=== PATIENT | male | born 1950 | race Caucasian/White ===

== ENCOUNTER 2019-11-03 16:29 | Emergency (ER) | payer MEDICARE ==
[~2019-11-03 16:29] MED LIST: SUCCINYLCHOLINE CHLORIDE INJ 200 MG/10 ML VIAL ONE
[2019-11-03] MEDS ORDERED: NALOXONE HCL INJ 2 MG/2 ML DISP.SYRIN ONE (16:52)
[2019-11-03] MEDS ORDERED: ETOMIDATE INJ/PF 20 MG/10 ML SDV IV ONE ×2 (16:57→17:13)
[2019-11-03] MEDS ORDERED: NALOXONE HCL INJ/PF 0.4 MG/1 ML SDV IV ONE (17:11)
[2019-11-03] MEDS ORDERED: SUCCINYLCHOLINE CHLORIDE INJ 200 MG/10 ML VIAL IV ONE (17:13)
[2019-11-03] MEDS ORDERED: LORAZEPAM INJ 2 MG/1 ML VIAL IV ONE ×2 (17:14→18:33)
[2019-11-03] MEDS ORDERED: VECURONIUM BROMIDE INJ 10 MG VIAL IV ONE ×2 (17:15→18:33)
[2019-11-03] MEDS ORDERED: NALOXONE HCL INJ 2 MG/2 ML DISP.SYRIN IV ONE (17:34)
--- NOTE | 2019-11-03 17:50 | RADIOLOGY REPORT (SQ) ---
EXAM DESCRIPTION: CHEST SINGLE VIEW COMPLETED DATE/TIME: 11/03/2019 5:32 pm REASON FOR STUDY: et/OG tube placement COMPARISON: None. EXAM PARAMETERS: NUMBER OF VIEWS: One view. TECHNIQUE: Single frontal radiographic view of the chest acquired. RADIATION DOSE: NA LIMITATIONS: None. FINDINGS: LUNGS AND PLEURA: Elevated left hemidiaphragm. Left pleural effusion. Retrocardiac opaci fication. Pulmonary vascular congestion. MEDIASTINUM AND HILAR STRUCTURES: No masses. Contour normal. HEART AND VASCULAR STRUCTURES: Heart normal in size. Normal vasculature. BONES: No acute findings. HARDWARE: Endotracheal tube has its tip 5 cm above the pam. OG tube is not seen. OTHER: No other significant finding. IMPRESSION: Left pleural effusion. Pulmonary vascular congestion. Cannot exclude airspace disease in left lower lobe. Endotracheal tube as described. TECHNICAL DOCUMENTATION: JOB ID: [id number] [employer]- All Rights Reserved Reading location - IP/workstation name: [email or web address]
--- NOTE | 2019-11-03 18:33 | RADIOLOGY REPORT (SQ) ---
EXAM DESCRIPTION: CT HEAD WITHOUT COMPLETED DATE/TIME: 11/03/2019 5:55 pm REASON FOR STUDY: ams, neck pain COMPARISON: None. TECHNIQUE: Axial images acquired through the brain without intravenous contrast. Images reviewed wi th bone, brain and subdural windows. Additional sagittal and coronal reconstructions were generated. Images stored on PACS. All CT scanners at this facility use dose modulation, iterative reconstruction, and/or weight based d osing when appropriate to reduce radiation dose to as low as reasonably achievable (ALARA). [facility]: Dose Right [facility]: CareDose [facility]: Dose Right [facility]: Teradose 4D [facility]: [employer] RADIATION DOSE: CT Rad equipment meets quality standard of care and radiation dose reduction techniq ues were employed. CTDIvol: 53.2 mGy. DLP: 1124 mGy-cm. mGy. LIMITATIONS: None. FINDINGS: VENTRICLES: Normal size and contour. CEREBRUM: Left temporal lobe parenchymal hemorrhage with subarachnoid component. No significant midl ine shift at this time. Agarwal- white matter differentiation and attenuation are otherwise normal. CEREBELLUM: No masses. No hemorrhage. No alteration of density. No evidence for acute infarction. EXTRAAXIAL SPACES: No masses. Subarachnoid blood products as above. ORBITS AND GLOBE: No intra- or extraconal masses. Normal contour of globe without masses. CALVARIUM: No fracture. PARANASAL SINUSES: Ethmoid air cell opacities are not an unexpected finding in the intubated patient. SOFT TISSUES: No large hematoma or scalp injury evident. OTHER: No other significant finding. IMPRESSION: Left temporal lobe parenchymal hemorrhage with subarachnoid component. EVIDENCE OF ACUTE STROKE: NO. COMMENT: Pertinent findings on the imaging study reported as a CRITICAL RESULT to KEISHA Lemus at18:22 on 11/03/2019. Category of Critical Result: Intracranial hemorrhage. Quality ID # 436: Final reports with documentation of one or more dose reduction techniques (e.g., Au tomated exposure control, adjustment of the mA and/or kV according to patient size, use of iterative reconstruction technique) TECHNICAL DOCUMENTATION: JOB ID: [id number] [employer]- All Rights Reserved Reading location - IP/workstation name: [email or web address]
--- NOTE | 2019-11-03 18:35 | RADIOLOGY REPORT (SQ) ---
EXAM DESCRIPTION: CT CERVICAL SPINE WITHOUT COMPLETED DATE/TIME: 11/03/2019 5:55 pm REASON FOR STUDY: ams, neck pain COMPARISON: None. TECHNIQUE: Axial images acquired through the cervical spine without intravenous contrast. Images re viewed with lung, soft tissue and bone windows. Reconstructed coronal and sagittal MPR images review ed. Images stored on PACS. All CT scanners at this facility use dose modulation, iterative reconstruction, and/or weight based d osing when appropriate to reduce radiation dose to as low as reasonably achievable (ALARA). [facility]: Dose Right [facility]: CareDose [facility]: Dose Right [facility]: Teradose 4D [facility]: [employer] RADIATION DOSE: CT Rad equipment meets quality standard of care and radiation dose reduction techniq ues were employed. CTDIvol: 19.7 mGy. DLP: 472 mGy-cm. mGy. LIMITATIONS: None. FINDINGS: ALIGNMENT: Anatomic. MINERALIZATION: Normal. VERTEBRAL BODIES: No fractures or dislocation. DISCS: Multilevel disc space narrowing with osteophytes. FACETS, LATERAL MASSES, POSTERIOR ELEMENTS: Facet arthropathy. No fractures. No dislocation. No ac slick findings. HARDWARE: Partially imaged endotracheal tube. VISUALIZED RIBS: No fractures. LUNG APICES AND SOFT TISSUES: Marked centrilobular and paraseptal emphysematous changes. No pneumoth orax. OTHER: No other significant finding. IMPRESSION: No evidence of acute osseous injury. Background of multilevel spondylotic changes and c hronic obstructive pulmonary disease. TECHNICAL DOCUMENTATION: JOB ID: [id number] Quality ID # [id number]: Final reports with documentation of one or more dose reduction techniques (e.g., Au tomated exposure control, adjustment of the mA and/or kV according to patient size, use of iterative reconstruction technique) 2010 [employer]- All Rights Reserved Reading location - IP/workstation name: [email or web address]
--- NOTE | 2019-11-03 18:46 | ER Document Report ---
Entered by AURELIO CALDERON SCRIBE 11/03/19 [id number] Acting as scribe for:KEISHA RICO IV, MD ED General - General Chief Complaint: Altered Mental Status Stated Complaint: FALL Time Seen by Provider: 11/03/19 16:49 Primary Care Provider: MIRNA FINK PA-C [Primary Care Provider] - Follow up as needed Mode of Arrival: Medic Information source: Relative, Emergency Med Personnel Cannot obtain history due to: Unstable vital signs, Altered mental status Notes: This 69-year-old male patient presents to the emergency department today via EMS for chief complaint of a fall with altered mental status per EMS. EMS states that on arrival they found the patient to be cyanotic on the floor with constricted pupils bilaterally and a room air oxygen saturation of 44%. About an hour after patient arrival, several members of the patient's family arrived and they were able to provide us with the following history: Family states that about 3 years ago the patient was diagnosed with a "tumor" but they were unable to provide any information such as the location(s) of said tumor(s) or what type of tumor(s) these were. 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 The patient's son mentions that the patient "just is not happy anymore and probably tried to kill himself". Family reports that when the patient was diagnosed with this "tumor" 3 years ago he was told that it would progress to the point that he would be unable to provide for himself. According to history from the family, it seems as if the patient has recently gotten to this point as family mentions that he has "complete loss of function of one arm and near loss of function of the other arm", he is not eating, and he has no control over his bowels. Family reports that "it has gotten to the point where he is physically unable to take care of himself now but he refuses to let any of us help him". Family reports that the patient has mentioned in the past that if and when he got to this point, he would have no desire to continue living. EMS pre-hospital interventions: Placed on 15L via nonrebreather, oxygen saturation lissa to 99%. 2 mg of Narcan due to apnea. Albuterol. Placed in c-collar due to complaints of neck pain. TRAVEL OUTSIDE OF THE [place] IN LAST 30 DAYS: No - Related Data Allergies/Adverse Reactions: No Known Allergies Allergy (Unverified 11/03/19 18:49) Past Medical History - General Information source: Relative, Emergency Med Personnel Cannot obtain history due to: Unstable vital signs, Altered mental status - Social History Smoking Status: Current Every Day Smoker Cigarette use (# per day): Yes Family History: Reviewed & Not Pertinent Patient has suicidal ideation: No Patient has homicidal ideation: No - Past Medical History Cardiac Medical History: Reports: Hx Congestive Heart Failure Pulmonary Medical History: Reports: Hx COPD 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 Respiratory rate of less than 5 on arrival. Breath sounds: Other - FAINT BILATERALLY Chest palpation: Normal - Cardiovascular Rhythm: Regular Heart sounds: Normal auscultation Murmur: No - Abdominal Inspection: Normal Distension: No distension Bowel sounds: Normal - Extremities General upper extremity: Normal inspection, Normal color. No: Edema General lower extremity: Normal inspection, Normal color. No: Edema - Neurological Neuro grossly intact: No - Skin Skin Temperature: Cool Skin Moisture: Dry Skin Color: Normal Course - Re-evaluation Re-evalutation: 11/03/19 18:44 1706 - Vital Signs Vital signs: Temp Pulse Resp BP Pulse Ox 97.8 F 14 107/76 100 11/03/19 19:16 11/03/19 19:16 11/03/19 19:16 11/03/19 19:16 - Laboratory Result Diagrams: 11/03/19 18:23 11/03/19 18:23 Laboratory results interpreted by me: 11/03/19 11/03/19 17:23 18:23 Hgb 18.2 H Hct 54.8 H MCV 101 H RDW 14.8 H Plt Count 121 L Seg Neuts % (Manual) 86 H Lymphocytes % (Manual) 5 L Abs Lymphs (Manual) 0.4 L Urine Protein 100 H Urine Ketones TRACE H Urine Urobilinogen 4.0 H Urine Ascorbic Acid 40 H - Diagnostic Test Radiology reviewed: Reports reviewed - Consults DR. TRAN Time consulted: 19:09 - DR. TRAN ACCEPTED PT FOR TRANSFER TO HIS FACILITY Reason for consultation: 11/03/19 19:39 HEMORRHAGIC CVA Procedures - Intubation Orotracheal Time of Intubation: 17:06 Airway evaluation: Normal anatomy Mallampati Classification: Class 2 Medications: Etomidate, Succinylcholine Intubation method: Orotracheal Blade type: Teresa Blade size: 4 Equipment used: Glidescope ETT size: 7.5 ETT secured at: Gums ETT secured at (cm): 21 Breath Sounds after Intubation: Equal End tidal CO2 confirmed: Yes Post Intubation Xray: Yes Intubation Complications: No complications Critical Care Note - Critical Care Note Total time excluding time spent on procedures (mins): 60 Discharge - Discharge Clinical Impression: Hemorrhagic cerebrovascular accident (CVA) Condition: Critical Disposition: [facility] Referrals: MIRNA FINK PA-C [Primary Care Provider] - Follow up as needed I personally performed the services described in the documentation, reviewed and edited the documentation which was dictated to the scribe in my presence, and it accurately records my words and actions.
[2019-11-03 18:57] LABS: HEMATOCRIT 54.8 % (37.9-51.0); HEMOGLOBIN 18.2 g/dL (13.5-17.0); MEAN CORPUSCULAR HEMOGLOBIN 33.4 pg (27.0-33.4); MEAN CORPUSCULAR HGB CONC 33.2 g/dL (32.0-36.0); MEAN CORPUSCULAR VOLUME 101 fl (80-97); PLATELET COUNT 121 10^3/uL (150-450); RED BLOOD COUNT 5.44 10^6/uL (4.35-5.55); RED CELL DISTRIBUTION WIDTH 14.8 % (11.5-14.0); WHITE BLOOD COUNT 8.8 10^3/uL (4.0-10.5)
[2019-11-03 18:59] LABS: APPEARANCE,URINE CLEAR; BILIRUBIN,URINE NEGATIVE (NEGATIVE); COLOR,URINE AMBER; GLUCOSE, URINE NEGATIVE (NEGATIVE); KETONES,URINE TRACE mg/dL (NEGATIVE); PROTEIN,URINE 100 mg/dL (NEGATIVE); URINE SPECIFIC GRAVITY 1.023
[2019-11-03] MEDS ORDERED: LEVETIRACETAM INJ/PF 500 MG/5 ML SDV IV ONE (19:06)
[2019-11-03] MEDS ORDERED: MANNITOL 25% INJ 12.5 GM/50 ML VIAL IV ONE (19:07)
[2019-11-03] MEDS ORDERED: TRANEXAMIC ACID INJ/PF 1,000 MG/10 ML SDV IV ONE (19:07)
[2019-11-03] MEDS ORDERED: NORMAL SALINE 1000 ML 1,000 ML IV ONE (19:07)
[2019-11-03 19:12] LABS: ABSOLUTE LYMPHOCYTES# (MANUAL) 0.4 10^3/uL (0.5-4.7); ABSOLUTE MONOCYTES # (MANUAL) 0.8 10^3/uL (0.1-1.4); ANISOCYTOSIS SLIGHT; BASOPHILS % (MANUAL) 0 % (0-2); EOSINOPHILS % (MANUAL) 0 % (0-6); LYMPHOCYTES % (MANUAL) 5 % (13-45); MONOCYTES % (MANUAL) 9 % (3-13); SEGMENTED NEUTROPHILS % (MAN) 86 % (42-78); TOTAL CELLS COUNTED 100
[2019-11-03 19:13] LABS: PLATELET COMMENT DECREASED
[2019-11-03 19:23] LABS: URINE AMPHETAMINES SCREEN NEGATIVE; URINE BARBITURATES SCREEN NEGATIVE; URINE BENZODIAZEPINES SCREEN NEGATIVE; URINE COCAINE SCREEN NEGATIVE; URINE MARIJUANA (THC) SCREEN NEGATIVE; URINE METHADONE SCREEN NEGATIVE; URINE PHENCYCLIDINE SCREEN NEGATIVE
[2019-11-03] MEDS ORDERED: LEVETIRACETAM 1000 MG/NACL-ISO 1,000 MG/100 ML RTUPB IV ONE (19:24)
[2019-11-03] MEDS ORDERED: MANNITOL IV ONE (19:45)
[2019-11-03 20:11] LABS: ALBUMIN 3.8 g/dL (3.5-5.0); ALKALINE PHOSPHATASE 80 U/L (38-126); ANION GAP 9 (5-19); ASPARTATE AMINO TRANSFERASE 97 U/L (17-59); BILIRUBIN,DIRECT 0.4 mg/dL (0.0-0.4); BILIRUBIN,TOTAL 2.8 mg/dL (0.2-1.3); BLOOD UREA NITROGEN 26 mg/dL (7-20); CALCIUM 9.2 mg/dL (8.4-10.2); CARBON DIOXIDE 37 mmol/L (22-30); CHLORIDE 97 mmol/L (98-107); GLUCOSE 104 mg/dL (75-110); POTASSIUM 5.3 mmol/L (3.6-5.0)
[2019-11-03 20:12] LABS: ALCOHOL < 10 mg/dL (NONE DETECTED)
[2019-11-03 20:24] VITALS: BP 90/66
--- NOTE | 2019-11-04 13:49 | EKG REPORT ---
SEVERITY:- ABNORMAL ECG - SINUS RHYTHM RIGHT AXIS DEVIATION NONSPECIFIC T ABNORMALITIES, LATERAL LEADS : Confirmed by: Patrica Andino MD 04-Nov-2019 13:48:57
== END 2019-11-03 20:30 | disposition short-term general hospital (02) ==
LOC: ER 16:29
DX: I62.9 Nontraumatic intracranial hemorrhage, unspecified (principal); M54.2 Cervicalgia; J44.9 Chronic obstructive pulmonary disease, unspecified; F17.210 Nicotine dependence, cigarettes, uncomplicated
CPT/HCPCS: 93005; 96376; 99291; 51702; 96375; 96365; 96367; 36415; 80307 ×2; 85025; 80053; 81001; 84484; 71045; 70450; 72125; 94660; 93010; 31500; J3490 ×2; J2060; J0330; J2310; J2150; J7030; 94002; J1953